=== PATIENT | female | born 1985 | race Caucasian/White ===

== ENCOUNTER 2018-03-17 06:12 | Day surgery (SDC) | payer OTHER ==
[~2018-03-17] VITALS: Ht 165.1 cm; Wt 74.1 kg
[2018-03-17] MEDS ORDERED: ALBUTEROL SULFATE 2.5 MG/0.5 ML NEB SOLUTION NEB ONE (06:13)
[2018-03-17] MEDS ORDERED: LIDOCAINE HCL 2% 30 ML JELLY TP ONE (06:13)
[2018-03-17] MEDS ORDERED: BENZOCAINE 20% 50 MCG/SPRAY 57 GM TP ONE (06:13)
[2018-03-17] MEDS ORDERED: SODIUM CHLORIDE 0.9% 1,000 ML IV ONE ×2 (06:30→07:03)
[2018-03-17] MEDS ORDERED: MIDAZOLAM HCL 2 MG/2 ML VIAL ONE (07:09)
[2018-03-17] MEDS ORDERED: FentaNYL CITRATE-PF 100 MCG/2 ML VIAL ONE (07:09)
[2018-03-17] MEDS ORDERED: ALBU8HFA IH (08:15)
[2018-03-17] MEDS ORDERED: MethylPREDNISolone SOD SUCC 125 MG/2 ML VIAL IVP ONE (09:00)
[2018-03-17] MEDS ORDERED: MethylPREDNISolone SOD SUCC 125 MG/2 ML VIAL ONE (09:10)
[2018-03-17] MEDS ORDERED: OXYGEN THERAPY IH SCH (20:00)
== END 2018-03-17 10:20 | disposition home or self-care (01) ==
LOC: SURGERY 06:12
PROVIDERS: ATTEND Internal Medicine Critical Care Medicine
DX: J38.4 Edema of larynx (principal); B37.0 Candidal stomatitis; J45.998 Other asthma; J98.09 Other diseases of bronchus, not elsewhere classified; Z98.890 Other specified postprocedural states; Z79.899 Other long term (current) drug therapy
CPT/HCPCS: 31623; 31624; 71045; 84703; 87015; 87070; 87205; 87206; 87220; 88108; 88312; J2250; J2930; J3010; J7030

== ENCOUNTER 2021-11-29 05:29 | Day surgery (SDC) | payer OTHER ==
[~2021-11-29] VITALS: Ht 160 cm; Wt 75.0 kg
[~2021-11-29 05:29] MED LIST: ALBU8HFA IH
[2021-11-29] MEDS ORDERED: LIDOCAINE 4% 50 ML SOLUTION TP ONE (05:30)
[2021-11-29] MEDS ORDERED: BENZOCAINE 20% 50 MCG/SPRAY 57 GM TP ONE (05:30)
[2021-11-29] MEDS ORDERED: LIDOCAINE 2% 30 ML JELLY TP ONE (05:30)
[2021-11-29 05:55] LABS: COVID AG,FIA SOURCE NASAL SWAB
[2021-11-29] MEDS ORDERED: SODIUM CHLORIDE 0.9% 1,000 ML ONE (06:41)
[2021-11-29] MEDS ORDERED: SODIUM CHLORIDE 0.9% 1,000 ML IV ONE (07:00)
[2021-11-29] MEDS ORDERED: FentaNYL CITRATE PF 100 MCG/2 ML VIAL ONE (08:13)
[2021-11-29] MEDS ORDERED: MIDAZOLAM HCL 5 MG/ML VIAL ONE (08:13)
[2021-11-29] MEDS ORDERED: MethylPREDNISolone SOD SUCC 125 MG/2 ML VIAL IVP ONE (09:00)
[2021-11-29] MEDS ORDERED: OXYGEN THERAPY IH SCH (20:00)
== END 2021-11-29 10:40 | disposition home or self-care (01) ==
LOC: SURGERY 05:29
PROVIDERS: ATTEND Internal Medicine Critical Care Medicine
DX: J38.4 Edema of larynx (principal); B37.0 Candidal stomatitis; Z79.899 Other long term (current) drug therapy; Z98.890 Other specified postprocedural states
CPT/HCPCS: 31623; 31624; 71045; 84703; 87015; 87070; 87101; 87206; 87220; 87426; 88112; 88184; 88185; 88305; 88312; C9803; J2250; J2930; J3010; J7030; Z7610